=== PATIENT | female | born 1945 | race Caucasian/White ===

== ENCOUNTER 2017-07-16 20:20 | Emergency (ER) | payer OTHER, MEDICAID ==
[~2017-07-16] VITALS: Ht 160 cm; Wt 56.7 kg
[~2017-07-16 20:20] MED LIST: ALPR0.255 PO; DILT180C66 PO; FENT1PAT5 TD; OXYC5CAP18 PO; PARO25TA16 PO; TRAZ-144 PO
--- NOTE | 2017-07-16 23:47 | NUR ---
Patient eloped from facility. ER physician notified. PT WALKED OUT WITH FAMILY AND BELONGINGS AT SIDE...
== END 2017-07-16 23:51 | disposition left against medical advice (07) ==
LOC: ER 20:21
DX: M79.89 Other specified soft tissue disorders (principal); Z53.21 Procedure and treatment not carried out due to patient leaving prior to being seen by health care provider
CPT/HCPCS: A4663

== ENCOUNTER 2017-07-25 23:56 | Emergency (ER) | payer OTHER, MEDICAID ==
[~2017-07-25] VITALS: Ht 160 cm; Wt 56.2 kg
--- NOTE | 2017-07-26 00:17 | NUR ---
DR ALLEN AT BEDSIDE FOR EVAL.
[2017-07-26] MEDS ORDERED: MORPHINE SULFATE 4 MG/1 ML DISP.SYRIN IV ONE (00:30)
[2017-07-26] MEDS ORDERED: ONDANSETRON 4 MG/2 ML VIAL IV ONE (00:30)
[2017-07-26] MEDS ORDERED: ONDANSETRON 4 MG/2 ML VIAL ONE (00:43)
[2017-07-26] MEDS ORDERED: MORPHINE SULFATE 4 MG/1 ML DISP.SYRIN ONE (00:43)
[2017-07-26] MEDS ORDERED: HYDROMORPHONE 1 MG/1 ML DISP.SYRIN IV ONE (00:45)
[2017-07-26] MEDS ORDERED: HYDROMORPHONE 2 MG/1 ML DISP.SYRIN ONE (00:52)
--- NOTE | 2017-07-26 01:20 | NUR ---
PATIENT CONSENT SIGNED FOR CLOSED REDUCTION OF LEFT SHOULDER. RISK AND BENEFITS EXPLAINED BY ERMD.
[2017-07-26] MEDS ORDERED: PROPOFOL 200 MG/20 ML BOTTLE ONE (01:21)
[2017-07-26] MEDS ORDERED: FENTANYL CITRATE 100 MCG/2 ML AMPUL ONE (01:22)
--- NOTE | 2017-07-26 01:30 | NUR ---
TIME OUT DONE WITH ALL MEMBERS OF THE TEAM.
--- NOTE | 2017-07-26 01:32 | NUR ---
0132- PROCEDURE STARTED WITH IV MEDICATION INFUSION, FENTANYL AND PROPOFOL 0135- BP 118/32 HR 68 O2 100% 0140- BP 108/64 HR 66 O2 100%, SECOND PROPOFOL GIVEN 0144- BP 107/71 HR 73 O2 100, PROCEDURE COMPLETED. RESPIRATIONS EVEN AND UNLABORED. SLING APPLIED. 0146- PATIENT IS AWAKE AND ALERT, TOLERATED PROCEDURE WELL. 0200- PATIENT IS SITTING UP IN BED, GIVEN DRINK BY , TOLERATING WELL. BP 121/46 HR 69 O2 100% ON 2L NC 0215- RESPIRATIONS EVEN AND UNLABORED, NO DISTRESS NOTED. BP 125/65 HR 62 02 99% ON RA 0230- BP 132/56 HR 64 O2 99% ON RA, PATIENT IS AWAKE AND ALERT, DENIES ANY CHEST PAIN OR SHORTNESS OF BREATH, NO ACUTE DISTRESS NOTED.
[2017-07-26] MEDS ORDERED: PROPOFOL 200 MG/20 ML BOTTLE IV ONE ×2 (02:30)
[2017-07-26] MEDS ORDERED: FENTANYL CITRATE 100 MCG/2 ML AMPUL IV ONE (02:30)
--- NOTE | 2017-07-26 03:04 | NUR ---
Patient discharged to home in stable conditon. Written and verbal after care instructions given. Patient verbalizes understanding of instructions. PATIENT LEFT WITH STABLE GAIT.
[2017-07-26 03:06] VITALS: BP 121/46
== END 2017-07-26 03:06 | disposition home or self-care (01) ==
LOC: ER 23:59
DX: M24.412 Recurrent dislocation, left shoulder (principal); Z96.612 Presence of left artificial shoulder joint
CPT/HCPCS: 73030; A4663; J1170; J2270; J2405; J3010; J3490

== ENCOUNTER 2017-08-02 22:40 | Emergency (ER) | payer OTHER, MEDICAID ==
[~2017-08-02] VITALS: Ht 160 cm; Wt 59.0 kg
[2017-08-02] MEDS ORDERED: FENTANYL CITRATE 100 MCG/2 ML AMPUL IV ONE (23:45)
[2017-08-02] MEDS ORDERED: IV NORMAL SALINE 1000 ML BAG IV ONE (23:45)
[2017-08-02] MEDS ORDERED: FENTANYL CITRATE 100 MCG/2 ML AMPUL ONE (23:54)
--- NOTE | 2017-08-03 01:01 | NUR ---
Patient discharged to home in stable conditon. Written and verbal after care instructions given. Patient verbalizes understanding of instructions.
== END 2017-08-03 01:03 | disposition home or self-care (01) ==
LOC: ER 22:42
DX: M25.512 Pain in left shoulder (principal); I25.10 Atherosclerotic heart disease of native coronary artery without angina pectoris; I10 Essential (primary) hypertension; M79.7 Fibromyalgia; M81.0 Age-related osteoporosis without current pathological fracture; Z95.5 Presence of coronary angioplasty implant and graft; Z96.611 Presence of right artificial shoulder joint; Z96.653 Presence of artificial knee joint, bilateral; Z88.6 Allergy status to analgesic agent; F17.200 Nicotine dependence, unspecified, uncomplicated
CPT/HCPCS: 73030; A4663; J3010; J7030

== ENCOUNTER 2019-04-07 01:17 | Emergency (ER) | payer OTHER, MEDICAID ==
[~2019-04-07] VITALS: Ht 160 cm; Wt 59.0 kg
[~2019-04-07 01:17] MED LIST changes: -TRAZ-144 PO; +TRAZ-182 PO
[2019-04-07] MEDS ORDERED: LORAZEPAM 2 MG/1 ML VIAL IM ONE (01:30)
[2019-04-07] MEDS ORDERED: LORAZEPAM 2 MG/1 ML VIAL ONE (01:30)
--- NOTE | 2019-04-07 01:40 | NUR ---
Patient bib RA 909 for c/o panic attack at home. When assessing patient, patient was hyperventilating uncooperative when instructed to slow down breathing. But patient had episodes where she stopped hyperventilating to answer questions asked, and then would continue with hyperventilation. Patient is dependent on xanax for her panic attacks. Patient in bed at lowest position, sr upx2, call light within reach.
[2019-04-07] MEDS ORDERED: GABA-534 PO (02:37)
[2019-04-07] MEDS ORDERED: CARV6.252 PO (02:37)
[2019-04-07] MEDS ORDERED: ESCI20TA37 PO (02:37)
--- NOTE | 2019-04-07 03:55 | NUR ---
Patient discharged to home in stable conditon. Written and verbal after care instructions given. Patient verbalizes understanding of instructions. Patient wearing socks with no shoes, offered to wheel patient out to prevent slipping while ambulating.
[2019-04-07 04:09] VITALS: BP 120/71
== END 2019-04-07 03:55 | disposition home or self-care (01) ==
LOC: ER 01:23
DX: F41.0 Panic disorder [episodic paroxysmal anxiety] (principal); F41.9 Anxiety disorder, unspecified; F17.200 Nicotine dependence, unspecified, uncomplicated; Z88.5 Allergy status to narcotic agent; Z79.899 Other long term (current) drug therapy
CPT/HCPCS: 71045; 93005 ×2; 96372; 99284; J2060; A4663

== ENCOUNTER 2019-11-30 09:50 | Emergency (ER) | payer OTHER, MEDICAID ==
[~2019-11-30] VITALS: Ht 160 cm; Wt 61.2 kg
[~2019-11-30 09:50] MED LIST changes: +CARV6.252 PO; +ESCI20TA37 PO; -FENT1PAT5 TD; +GABA-534 PO; -PARO25TA16 PO; -TRAZ-182 PO
[2019-11-30] MEDS ORDERED: ONDANSETRON 4 MG/2 ML VIAL ONE (10:10)
[2019-11-30] MEDS ORDERED: PANTOPRAZOLE SODIUM 40 MG VIAL IV ONE (10:15)
[2019-11-30] MEDS ORDERED: ONDANSETRON 4 MG/2 ML VIAL IV ONE (10:15)
[2019-11-30] MEDS ORDERED: IV NORMAL SALINE 1000 ML BAG IV ONE (10:15)
[2019-11-30] MEDS ORDERED: PANTOPRAZOLE SODIUM 40 MG VIAL ONE (10:24)
[2019-11-30 10:32] LABS: BASOPHILS % (AUTO) 0.4 % (0.0-2.0); EOSINOPHILS % (AUTO) 0.2 % (0.0-7.0); HEMATOCRIT 45.4 % (31.2-41.9); LYMPHOCYTES # (AUTO) 2.5 K/uL (20.0-40.0); LYMPHOCYTES % (AUTO) 23.8 % (20.5-51.5); MEAN CORPUSCULAR HEMOGLOBIN 32.3 uug (24.7-32.8); MEAN CORPUSCULAR HGB CONC 33 g/dL (32.3-35.6); MEAN CORPUSCULAR VOLUME 97.5 fL (75.5-95.3); MONOCYTES # (AUTO) 0.4 K/uL (2.0-10.0); MONOCYTES % (AUTO) 4.2 % (0.0-11.0); NEUTROPHILS # (AUTO) 7.6 K/uL (1.8-8.9); NEUTROPHILS % (AUTO) 71.4 % (38.5-71.5); PLATELET COUNT (AUTO) 290 K/uL (179-408); RED BLOOD CELL COUNT(AUTO) 4.66 MIL/uL (3.63-4.92); WHITE BLOOD COUNT (AUTO) 10.6 K/uL (3.8-11.8)
--- NOTE | 2019-11-30 10:38 | NUR ---
PT IS IN ROOM #1B. DR ALLEN EVALUATED THE PT.
[2019-11-30 10:40] LABS: CREATININE 0.7 mg/dL (0.6-1.3); POTASSIUM 3.5 mmol/L (3.5-5.1)
[2019-11-30 10:45] LABS: BILIRUBIN,DIRECT 0.1 mg/dL (0.0-0.2); BILIRUBIN,TOTAL 0.7 mg/dL (0.2-1.0); TOTAL PROTEIN, SERUM 7.7 g/dL (6.4-8.2)
[2019-11-30 11:59] LABS: *BILIRUBIN,URIN NEGATIVE (NEGATIVE); *BLOOD, URINE NEGATIVE (NEGATIVE); *CLARITY,URINE CLEAR (CLEAR); *COLOR,URINE YELLOW (YELLOW); UGLUCOSE NEGATIVE (NEGATIVE)
[2019-11-30 12:00] LABS: *KETONES,URINE 4+ (NEGATIVE); *UROBILINOGEN,URINE 0.2 E.U./dl (NORMAL); LEUKOCYTE ESTERASE ,URINE NEGATIVE (NEGATIVE); NITRITE, URINE NEGATIVE (NEGATIVE)
[2019-11-30 12:04] LABS: BACTERIA,URINE 2+ /HPF (NONE SEEN); RBC,URINE 0-3 /HPF (0-3); SQUAMOUS EPITHELIAL CELL,UR MODERATE /HPF (NONE SEEN); WBC,URINE 0-3 /HPF (0-3)
[2019-11-30] MEDS ORDERED: LORAZEPAM 2 MG/1 ML VIAL ONE (12:10)
[2019-11-30] MEDS ORDERED: LORAZEPAM 2 MG/1 ML VIAL IV ONE (12:15)
[2019-11-30] MEDS ORDERED: CLOPIDOGREL 75 MG TABLET PO ONE (12:30)
[2019-11-30] MEDS ORDERED: CLOPIDOGREL 75 MG TABLET ONE (12:33)
--- NOTE | 2019-11-30 13:24 | NUR ---
dr Barriga talked to dr Barnett from [facility]. pt was transfered to [facility] at [facility] ambulance . report was given to coral Sutherland and to ambulance rn.
== END 2019-11-30 13:41 | disposition short-term general hospital (02) ==
LOC: ER 09:50
DX: R07.89 Other chest pain (principal); K52.9 Noninfective gastroenteritis and colitis, unspecified; F41.9 Anxiety disorder, unspecified; I25.10 Atherosclerotic heart disease of native coronary artery without angina pectoris; F17.200 Nicotine dependence, unspecified, uncomplicated; Z88.5 Allergy status to narcotic agent; Z79.899 Other long term (current) drug therapy
CPT/HCPCS: 36415; 71045; 74176; 80048; 80076; 81000; 81001; 83690; 84484; 85025; 85730; 93005; 96361; 96374; 96375; 99285; C9113; J2060; J2405; 70030-TC; A4663; J7030

== ENCOUNTER 2020-06-07 05:22 | Emergency (ER) | payer OTHER, MEDICAID ==
[~2020-06-07] VITALS: Ht 160 cm; Wt 69.4 kg
--- NOTE | 2020-06-07 05:27 | NUR ---
Dr. Zapien at bedside for MSE
[2020-06-07] MEDS ORDERED: MUPIROCIN 2% OINT 22 GM TUBE TP ONE (05:30)
[2020-06-07] MEDS ORDERED: SULFAMETH/TRIMETH 800/160 MG TABLET PO ONE (05:30)
[2020-06-07] MEDS ORDERED: CEPH-570 PO (05:37)
[2020-06-07] MEDS ORDERED: MUPIROCIN 2% OINT 22 GM TUBE ONE (05:39)
[2020-06-07] MEDS ORDERED: SULFAMETH/TRIMETH 800/160 MG TABLET ONE (05:39)
--- NOTE | 2020-06-07 06:00 | NUR ---
Patient discharged to home in stable condition. Written and verbal after care instructions given. Patient verbalizes understanding of instructions. Stressed follow up or return to ER for worsening s/s. aa/ox4 able to speak in complete sentences respirations even and unlabored no s/s of distress all belongings with pt ambulatory with steady gait pt's friend will drive pt home
[2020-06-07 06:35] VITALS: BP 124/77
[2020-06-07] MEDS ORDERED: SULF1TAB48 PO (11:25)
[2020-06-07] MEDS ORDERED: MUPI22OI2 TP (11:25)
== END 2020-06-07 06:00 | disposition home or self-care (01) ==
LOC: ER 05:27
DX: L08.9 Local infection of the skin and subcutaneous tissue, unspecified (principal); S91.302A Unspecified open wound, left foot, initial encounter; X58.XXXA Exposure to other specified factors, initial encounter; Y92.89 Other specified places as the place of occurrence of the external cause; Z96.653 Presence of artificial knee joint, bilateral; Z96.611 Presence of right artificial shoulder joint; I25.10 Atherosclerotic heart disease of native coronary artery without angina pectoris; Z95.5 Presence of coronary angioplasty implant and graft; M79.7 Fibromyalgia; G89.29 Other chronic pain; F41.9 Anxiety disorder, unspecified; Z79.899 Other long term (current) drug therapy
CPT/HCPCS: A4663

== ENCOUNTER 2020-06-07 10:42 | Emergency (ER) | payer OTHER ==
[~2020-06-07] VITALS: Ht 160 cm; Wt 68.0 kg
[~2020-06-07 10:42] MED LIST changes: +CEPH-570 PO
[2020-06-07] MEDS ORDERED: IV NORMAL SALINE 1000 ML BAG IV ONE (11:00)
[2020-06-07] MEDS ORDERED: LORAZEPAM 2 MG/1 ML VIAL IV ONE (11:00)
[2020-06-07] MEDS ORDERED: LORAZEPAM 2 MG/1 ML VIAL ONE (11:15)
[2020-06-07 11:23] LABS: BASOPHILS % (AUTO) 0.5 % (0.0-2.0); EOSINOPHILS % (AUTO) 0.2 % (0.0-7.0); HEMATOCRIT 41.2 % (31.2-41.9); HEMOGLOBIN 13.8 g/dL (10.9-14.3); LYMPHOCYTES # (AUTO) 1.9 K/uL (20.0-40.0); LYMPHOCYTES % (AUTO) 18.2 % (20.5-51.5); MEAN CORPUSCULAR HEMOGLOBIN 31.1 uug (24.7-32.8); MEAN CORPUSCULAR HGB CONC 34 g/dL (32.3-35.6); MEAN CORPUSCULAR VOLUME 92.7 fL (75.5-95.3); MONOCYTES # (AUTO) 0.6 K/uL (2.0-10.0); MONOCYTES % (AUTO) 5.6 % (0.0-11.0); NEUTROPHILS # (AUTO) 7.7 K/uL (1.8-8.9); NEUTROPHILS % (AUTO) 75.5 % (38.5-71.5); PLATELET COUNT (AUTO) 322 K/uL (179-408); RED BLOOD CELL COUNT(AUTO) 4.45 MIL/uL (3.63-4.92); WHITE BLOOD COUNT (AUTO) 10.2 K/uL (3.8-11.8)
[2020-06-07] MEDS ORDERED: MUPI22OI2 TP (11:25)
[2020-06-07] MEDS ORDERED: SULF1TAB48 PO (11:25)
[2020-06-07 11:27] LABS: CREATININE 0.7 mg/dL (0.6-1.3); POTASSIUM 3.4 mmol/L (3.5-5.1)
[2020-06-07] MEDS ORDERED: ONDANSETRON ODT 4 MG TAB.RAPDIS ONE (11:32)
[2020-06-07 11:33] LABS: BILIRUBIN,DIRECT 0.2 mg/dL (0.0-0.2); BILIRUBIN,TOTAL 0.6 mg/dL (0.2-1.0); TOTAL PROTEIN, SERUM 7.7 g/dL (6.4-8.2)
--- NOTE | 2020-06-07 11:38 | NUR ---
PATIENT HERE FOR C/O NAUSEA AND VOMITING
[2020-06-07] MEDS ORDERED: LORAZEPAM 2 MG/1 ML VIAL IM ONE (11:45)
[2020-06-07] MEDS ORDERED: ONDANSETRON ODT 4 MG TAB.RAPDIS SL ONE (11:45)
--- NOTE | 2020-06-07 11:51 | NUR ---
PATIENT STATES NAUSEA HAS DIMINISHED.
--- NOTE | 2020-06-07 12:18 | NUR ---
PATIENT IS ABLE TO DRINK 8 OZ OF WATER WITH NO SYMPTOMS.
--- NOTE | 2020-06-07 12:26 | NUR ---
DC, RX AND FOLLOW UP INSTRUCTIONS GIVEN AND EXPLAINED TO PATIENT WHO STATES SHE UNDERSTANDS ALL INSTRUCITONS.
--- NOTE | 2020-06-07 12:29 | NUR ---
UNABLE TO PLACE IV BECAISE PATIENT KEEP PULLING HER ARM WHEN NEEDLE TOUCHES HER SKIN. DR CASH NOTIFIED. ATIVAN GIVEN IM AND ZOFRAN ODT. PATIENT WAS ABLE TO DRINK >8 OZ OF WATER WITH NO ISSUES. PATIENT HAD VERY MINIMAL COUGHING AND NO VOMITING DURING STAY IN ER TODAY.
--- NOTE | 2020-06-07 12:30 | NUR ---
DC, RX AND FOLLOW UP INSTRUCTIONS GIVEN AND EXPLAINED TO PATIENT WHO STATES SHE UNDERSTANDS ALL INSTRUCITONS. INSTRUCTED NOT TO DRIVE AND OTHER BENZO PRECAUTIONS.
== END 2020-06-07 12:31 | disposition home or self-care (01) ==
LOC: ER 10:42
DX: F41.1 Generalized anxiety disorder (principal); R11.2 Nausea with vomiting, unspecified; M79.7 Fibromyalgia; I25.10 Atherosclerotic heart disease of native coronary artery without angina pectoris; Z95.5 Presence of coronary angioplasty implant and graft; Z96.653 Presence of artificial knee joint, bilateral; Z96.611 Presence of right artificial shoulder joint; G89.29 Other chronic pain; I51.7 Cardiomegaly
CPT/HCPCS: 36415; 80048; 80076; 84484; 85025; 93005; 96372; 99284; J2060; 70030-TC; A4663; J7030; Q0162

== ENCOUNTER 2020-06-15 01:31 | Emergency (ER) | payer OTHER ==
[~2020-06-15] VITALS: Ht 165.1 cm; Wt 65.8 kg
[~2020-06-15 01:31] MED LIST changes: -CEPH-570 PO; +MUPI22OI2 TP; -OXYC5CAP18 PO; +SULF1TAB48 PO
--- NOTE | 2020-06-15 01:38 | NUR ---
NAZARIO LAO at bedside for MSE
[2020-06-15] MEDS: SULFAMETH/TRIMETH 800/160 MG TABLET PO ONE (01:50)
[2020-06-15] MEDS ORDERED: ONDANSETRON ODT 4 MG TAB.RAPDIS ONE (01:50)
[2020-06-15] MEDS ORDERED: NEOMY/BACITRA/POLYMYXIN B OINT UD PACKET TP ONE (01:50)
[2020-06-15] MEDS ORDERED: OXYCODONE/APAP 5-325 MG TABLET ONE (01:51)
[2020-06-15] MEDS ORDERED: SULFAMETH/TRIMETH 800/160 MG TABLET ONE (01:51)
[2020-06-15] MEDS ORDERED: CEphaleXIN 500 MG CAPSULE ONE (01:51)
[2020-06-15] MEDS: NEOMY/BACITRA/POLYMYXIN B OINT UD PACKET TP ONE (01:51)
[2020-06-15] MEDS: OXYCODONE/APAP 5-325 MG TABLET PO ONE (01:51)
[2020-06-15] MEDS: CEphaleXIN 500 MG CAPSULE PO ONE (01:51)
[2020-06-15] MEDS: ONDANSETRON ODT 4 MG TAB.RAPDIS SL ONE (01:51)
--- NOTE | 2020-06-15 02:02 | NUR ---
Patient left foot ulcers cleansed with Normal saline, triple antibiotic applied, non adherent gauze, kerlix, tube guaze. pain medication administered per MD orders
--- NOTE | 2020-06-15 02:27 | NUR ---
Patient discharged to home in stable condition. Written and verbal after care instructions given. Patient verbalizes understanding of instructions. Stressed follow up or return to ER for worsening s/s. Pt picked up by friend, Nael, driving her home. pt appears in no distress.
[2020-06-15 02:28] VITALS: BP 133/62
== END 2020-06-15 02:28 | disposition home or self-care (01) ==
LOC: ER 01:35
DX: L03.116 Cellulitis of left lower limb (principal); M79.7 Fibromyalgia; G89.29 Other chronic pain; Z96.653 Presence of artificial knee joint, bilateral; Z96.611 Presence of right artificial shoulder joint; I25.10 Atherosclerotic heart disease of native coronary artery without angina pectoris; Z95.5 Presence of coronary angioplasty implant and graft
CPT/HCPCS: A4663; Q0162

== ENCOUNTER 2020-06-20 13:51 | Emergency (ER) | payer OTHER ==
[~2020-06-20] VITALS: Ht 165.1 cm; Wt 65.8 kg
[2020-06-20] MEDS ORDERED: ONDANSETRON 4 MG/2 ML VIAL ONE (14:13)
[2020-06-20] MEDS ORDERED: ONDANSETRON 4 MG/2 ML VIAL IM ONE (14:15)
[2020-06-20 14:40] VITALS: BP 140/63
== END 2020-06-20 14:41 | disposition home or self-care (01) ==
LOC: ER 13:58
DX: L03.116 Cellulitis of left lower limb (principal); R11.2 Nausea with vomiting, unspecified; T36.1X5A Adverse effect of cephalosporins and other beta-lactam antibiotics, initial encounter; Y92.89 Other specified places as the place of occurrence of the external cause; I25.10 Atherosclerotic heart disease of native coronary artery without angina pectoris; Z95.5 Presence of coronary angioplasty implant and graft; M79.7 Fibromyalgia; G89.29 Other chronic pain; Z96.653 Presence of artificial knee joint, bilateral; Z96.611 Presence of right artificial shoulder joint; Z79.899 Other long term (current) drug therapy
CPT/HCPCS: A4663; J2405

== ENCOUNTER 2020-09-30 14:04 | Emergency (ER) | payer OTHER, MEDICAID ==
[~2020-09-30] VITALS: Ht 172.7 cm; Wt 70.8 kg
[2020-09-30] MEDS: IV NORMAL SALINE 1000 ML BAG IV ONE ×2 (14:15→14:17)
[2020-09-30] MEDS ORDERED: NALOXONE HCL 0.4 MG/ML AMPUL IV ONE (14:15)
[2020-09-30] MEDS ORDERED: BUSP15TA3 PO (14:17)
[2020-09-30] MEDS ORDERED: IBUP-1953 PO (14:17)
[2020-09-30] MEDS ORDERED: NALOXONE HCL 0.4 MG/ML AMPUL ONE (14:20)
[2020-09-30 14:32] LABS: BASOPHILS # (AUTO) 0.1 K/uL (0.0-8.0); BASOPHILS % (AUTO) 0.6 % (0.0-2.0); EOSINOPHILS # (AUTO) 0.1 K/uL (0.0-0.7); EOSINOPHILS % (AUTO) 0.4 % (0.0-7.0); HEMATOCRIT 29.4 % (31.2-41.9); LYMPHOCYTES # (AUTO) 2.1 K/uL (20.0-40.0); LYMPHOCYTES % (AUTO) 15.4 % (20.5-51.5); MEAN CORPUSCULAR HEMOGLOBIN 32.5 uug (24.7-32.8); MEAN CORPUSCULAR HGB CONC 34 g/dL (32.3-35.6); MEAN CORPUSCULAR VOLUME 95.4 fL (75.5-95.3); MONOCYTES # (AUTO) 0.5 K/uL (2.0-10.0); MONOCYTES % (AUTO) 3.9 % (0.0-11.0); NEUTROPHILS % (AUTO) 79.7 % (38.5-71.5); PLATELET COUNT (AUTO) 289 K/uL (179-408); RED BLOOD CELL COUNT(AUTO) 3.08 MIL/uL (3.63-4.92); WHITE BLOOD COUNT (AUTO) 13.9 K/uL (3.8-11.8)
--- NOTE | 2020-09-30 14:32 | NUR ---
pt back from ct scan. Andrea Thorpe at bedside. pt able to move toesand fingers when told so. i asked the pt to blink, if she hears me and she blinked. pt remains non-verbal with weakness on all extremeties.
[2020-09-30 14:46] LABS: CARBON DIOXIDE 23 mmol/L (21-32); CHLORIDE 105 mmol/L (98-107); CREATININE 0.7 mg/dL (0.6-1.3); GLUCOSE 171 mg/dL (74-106); POTASSIUM 3.6 mmol/L (3.5-5.1); UREA NITROGEN, BLOOD 20 mg/dL (7-18)
[2020-09-30 14:52] LABS: ETHANOL < 3 MG/DL (0-0)
[2020-09-30 14:55] LABS: THYROID STIMULATING HORMONE 4.355 mIU/mL (0.358-3.740)
[2020-09-30 14:56] LABS: *BILIRUBIN,URIN NEGATIVE (NEGATIVE); *BLOOD, URINE NEGATIVE (NEGATIVE); *CLARITY,URINE SLIGHTLY CLOUDY (CLEAR); *COLOR,URINE YELLOW (YELLOW); *KETONES,URINE NEGATIVE (NEGATIVE); *UROBILINOGEN,URINE 0.2 E.U./dl (NORMAL); LEUKOCYTE ESTERASE ,URINE NEGATIVE (NEGATIVE); NITRITE, URINE NEGATIVE (NEGATIVE); UGLUCOSE NEGATIVE (NEGATIVE)
[2020-09-30] MEDS: IV NORMAL SALINE 250 ML BAG IV ONE ×2 (15:06→15:32)
[2020-09-30 15:13] LABS: *AMPHETAMINE, URINE NEGATIVE (NEGATIVE); *CANNABINOID, URINE NEGATIVE (NEGATIVE); *COCCAINE, URINE NEGATIVE (NEGATIVE); *OPIATE, URINE NEGATIVE (NEGATIVE); *PHENCYCLIDINE SCREEN,URINE NEGATIVE (NEGATIVE)
--- NOTE | 2020-09-30 15:14 | NUR ---
er md at bedside talking to pt. pt able to answer in 1-2 words.
--- NOTE | 2020-09-30 15:19 | NUR ---
pt awake now, able to talk in small sentences.
[2020-09-30 15:22] LABS: ALANINE AMINOTRANSFERASE 16 U/L (14-59); ALKALINE PHOSPHATASE 77 U/L (50-136); ASPARTATE AMINOTRANSFERASE 16 U/L (15-37); BILIRUBIN,DIRECT 0.1 mg/dL (0.0-0.2); BILIRUBIN,TOTAL 0.5 mg/dL (0.2-1.0); TOTAL PROTEIN, SERUM 6.3 g/dL (6.4-8.2)
[2020-09-30] MEDS ORDERED: PANTOPRAZOLE SODIUM 40 MG VIAL ONE (15:39)
[2020-09-30] MEDS ORDERED: ONDANSETRON 4 MG/2 ML VIAL ONE (15:39)
[2020-09-30] MEDS ORDERED: ONDANSETRON 4 MG/2 ML VIAL IV ONE (15:45)
[2020-09-30] MEDS ORDERED: IV NS 1000 ML 1,000 ML IV ONE (15:45)
[2020-09-30] MEDS ORDERED: PANTOPRAZOLE SODIUM 40 MG VIAL IV ONE (15:45)
[2020-09-30] MEDS ORDERED: ACETYLCYSTEINE IV 0 MG in IV D5W 1000ML 1,000 ML IV ONE (17:30)
--- NOTE | 2020-09-30 18:19 | NUR ---
NAZARIO LAO spoke to Dr Hansen from [facility].
--- NOTE | 2020-09-30 18:21 | NUR ---
pt awake, moving all extremeties, trying to come out of bed and go to bathroom, bed turner provided.
[2020-09-30] MEDS ORDERED: DEXTROSE 5% IV ONE ×2 (18:23→19:30)
[2020-09-30] MEDS ORDERED: ACETYLCYSTEINE IV ONE ×2 (18:23→19:30)
--- NOTE | 2020-09-30 18:23 | NUR ---
er talked to at [facility], pt will be transfered, [phone].
--- NOTE | 2020-09-30 19:30 | NUR ---
Ron agustin in ED - 10/04/20 at 1351 by CHRISTINA mucomyst Iv started at 1930, left hand.
--- NOTE | 2020-09-30 20:00 | NUR ---
mucomyst IV completed at 1999.
--- NOTE | 2020-09-30 20:04 | NUR ---
[facility] Patient will be going to [facility] room 5110A. Accepting MD is Dr Galvez. Call for report is . ETA of [facility] ambulance is 2114.
--- NOTE | 2020-09-30 23:00 | NUR ---
Ron agustin in ED - 10/04/20 at 1352 by CHRISTINA mucomyst IV completed at 2300
--- NOTE | 2020-09-30 23:01 | NUR ---
Ron agustin in [facility] - 09/30/20 at 2301 by MATHEUS Report given to CB Champion
--- NOTE | 2020-09-30 23:07 | NUR ---
Report given to CB Champion at [facility] floor bed 5110A at [facility]. Report given to CB Bravo of [id number]. Patient vital signs stable and ready for transport.
[2020-10-01 15:54] LABS: BACTERIA,URINE NONE SEEN /HPF (NONE SEEN); RBC,URINE 0-3 /HPF (0-3); SQUAMOUS EPITHELIAL CELL,UR FEW /HPF (NONE SEEN); WBC,URINE 0-3 /HPF (0-3)
== END 2020-09-30 23:08 | disposition short-term general hospital (02) ==
LOC: ER 14:04
DX: T42.4X4A Poisoning by benzodiazepines, undetermined, initial encounter (principal); T39.1X4A Poisoning by 4-Aminophenol derivatives, undetermined, initial encounter; R11.0 Nausea; G92 Toxic encephalopathy; Y92.039 Unspecified place in apartment as the place of occurrence of the external cause; R00.1 Bradycardia, unspecified; K43.9 Ventral hernia without obstruction or gangrene; Z98.49 Cataract extraction status, unspecified eye; Z96.1 Presence of intraocular lens; D72.829 Elevated white blood cell count, unspecified; D64.9 Anemia, unspecified; I25.10 Atherosclerotic heart disease of native coronary artery without angina pectoris; M79.7 Fibromyalgia; G89.29 Other chronic pain; Z96.653 Presence of artificial knee joint, bilateral; Z96.698 Presence of other orthopedic joint implants; Z96.611 Presence of right artificial shoulder joint; Z95.5 Presence of coronary angioplasty implant and graft; Z79.899 Other long term (current) drug therapy; F17.200 Nicotine dependence, unspecified, uncomplicated; Z20.828 Contact with and (suspected) exposure to other viral communicable diseases
CPT/HCPCS: 36415; 70450; 71045; 72125; 74176; 80048; 80076; 80299 ×2; 80307; 80320; 81001; 82140; 82550; 83605; 83880; 84443; 84484; 85025; 85730; 87086; 87426; 93005; 96361; 96365; 96375; 99285; C9113; J0132 ×2; J2310; J2405; J7060 ×2; 70030-TC; A4663; C1758; G0480; J7050

== ENCOUNTER 2021-07-21 21:06 | Emergency (ER) | payer OTHER ==
[~2021-07-21] VITALS: Ht 165.1 cm; Wt 61.2 kg
[~2021-07-21 21:06] MED LIST changes: +BUSP15TA3 PO; -ESCI20TA37 PO; +ESCI20TA44 PO; +IBUP-1953 PO; -MUPI22OI2 TP; -SULF1TAB48 PO
[2021-07-21] MEDS ORDERED: LORA-259 PO (22:44)
[2021-07-21] MEDS ORDERED: LORAZEPAM 0.5 MG TABLET PO ONE (22:45)
[2021-07-21] MEDS ORDERED: LORAZEPAM 1 MG TABLET ONE (22:53)
--- NOTE | 2021-07-21 22:58 | NUR ---
Patient discharged to home in stable condition. A/O x4, no SOB or labored breathing. Written and verbal after care instructions given. Patient verbalizes understanding of instructions. Stressed follow up or return to ER for worsening s/s. STeaDy gait. Picked up by family.
[2021-07-21 23:00] VITALS: BP 132/78
== END 2021-07-21 23:00 | disposition home or self-care (01) ==
LOC: ER 21:07
DX: F41.9 Anxiety disorder, unspecified (principal); G89.29 Other chronic pain; M79.7 Fibromyalgia; I25.10 Atherosclerotic heart disease of native coronary artery without angina pectoris; Z95.5 Presence of coronary angioplasty implant and graft; Z96.653 Presence of artificial knee joint, bilateral; Z96.611 Presence of right artificial shoulder joint
CPT/HCPCS: A4663

== ENCOUNTER 2021-07-22 15:42 | Emergency (ER) | payer OTHER ==
[~2021-07-22] VITALS: Ht 165.1 cm; Wt 63.5 kg
[~2021-07-22 15:42] MED LIST changes: +LORA-259 PO
[2021-07-22] MEDS ORDERED: LORAZEPAM 0.5 MG TABLET PO ONE ×2 (16:15→18:15)
[2021-07-22] MEDS ORDERED: LORAZEPAM 0.5 MG TABLET ONE ×2 (16:22→18:20)
[2021-07-22] MEDS: IV NORMAL SALINE 1000 ML BAG IV ONE ×2 (16:49→17:30)
[2021-07-22 16:50] LABS: MEAN CORPUSCULAR HEMOGLOBIN 27.8 uug (24.7-32.8); MEAN CORPUSCULAR VOLUME 85.7 fL (75.5-95.3); PLATELET COUNT (AUTO) 377 K/uL (179-408)
[2021-07-22] MEDS: ONDANSETRON 4 MG/2 ML VIAL IV ONE ×2 (16:50→17:30)
[2021-07-22 16:55] LABS: CREATININE 0.6 mg/dL (0.6-1.3)
--- NOTE | 2021-07-22 16:57 | NUR ---
1615: Reinforcing Steel Machine Operator assumes care. 1st contact with patient: She is AOx4. She is standing by ER bed 4 door, loudly and repeatedly saying, "I want my Zanax." 1616: Po Ativan given as ordered. 1620: Patient was initially refusing EKG and blood draw. notified. 1634: 2 extra warm blankets provided. 1636: Blood draw in progress by lab inorganic chemical technician. 1654: MD wanted the EKG repeated. Patient refused and requested to wait for one hour before repeating the EKG test. notified. Patient is seen resting comfortably on gurney with eyes closed. Light dimmed.
[2021-07-22 17:01] LABS: BILIRUBIN,DIRECT 0.2 mg/dL (0.0-0.2); BILIRUBIN,TOTAL 0.6 mg/dL (0.2-1.0); TOTAL PROTEIN, SERUM 7.7 g/dL (6.4-8.2)
[2021-07-22] MEDS ORDERED: ONDANSETRON 4 MG/2 ML VIAL ONE (17:18)
--- NOTE | 2021-07-22 17:37 | NUR ---
Patient wants more anti-anxiety medicines, MD notified. Patient keeps walking in the ER hallway despite frequent reminders by all ER staff to stay in her room for her safety and to protect other patient's confidential medical information.
--- NOTE | 2021-07-22 17:46 | NUR ---
Patient signed transfer consent. ([id number])
--- NOTE | 2021-07-22 17:54 | NUR ---
Patient wants to leave. MD notified. Patient is now talking to her spouse? and daughter via hospital wireless telephone.
--- NOTE | 2021-07-22 19:07 | NUR ---
Pending [facility] transfer information, hands off report given to CB Dang.
--- NOTE | 2021-07-22 19:10 | NUR ---
Received report from CB Aguillon. Pt noted to be resting in bed comfortably, eyes closed, VSS. Breathing even and unlabored.
--- NOTE | 2021-07-22 20:37 | NUR ---
[facility] with [facility], patient is going to [facility], Room#4045, Number to report to , Accepting MD is Dr. Dong, Ambulance is [facility] with ETA 2130.
--- NOTE | 2021-07-22 20:55 | NUR ---
GAVE REPORT TO NEISHA, NURSE IN [facility].
--- NOTE | 2021-07-22 21:28 | NUR ---
[facility] AT BEDSIDE, UNIT 116, TO TRANSFER PT TO [place]. TRINY RECEIVING NURSE MADE AWARE.
--- NOTE | 2021-07-22 21:35 | NUR ---
Patient Tranfers to outside Facility Physician: DR. POTTER Location: [facility], Room#3429
== END 2021-07-22 21:35 | disposition short-term general hospital (02) ==
LOC: ER 15:43
DX: F41.9 Anxiety disorder, unspecified (principal); R11.2 Nausea with vomiting, unspecified; D72.829 Elevated white blood cell count, unspecified; M79.7 Fibromyalgia; Z20.822 Contact with and (suspected) exposure to COVID-19; Z96.611 Presence of right artificial shoulder joint; Z96.653 Presence of artificial knee joint, bilateral; I25.10 Atherosclerotic heart disease of native coronary artery without angina pectoris; Z95.5 Presence of coronary angioplasty implant and graft; Z88.5 Allergy status to narcotic agent; G89.29 Other chronic pain
CPT/HCPCS: 36415; 74176; 80048; 80076; 83605; 83690; 84484; 85025; 87426; 93005; 96361; 96374; 99285; J2405; 70030-TC; A4663

== ENCOUNTER 2021-07-25 04:02 | Emergency (ER) | payer OTHER ==
[~2021-07-25] VITALS: Ht 165.1 cm; Wt 63.5 kg
[2021-07-25] MEDS ORDERED: PROCHLORPERAZINE EDISYLATE 10 MG/2 ML VIAL IV ONE (04:15)
[2021-07-25] MEDS ORDERED: PROCHLORPERAZINE EDISYLATE 10 MG/2 ML VIAL IM ONE (04:15)
[2021-07-25] MEDS ORDERED: IV NORMAL SALINE 1000 ML BAG IV ONE (04:15)
[2021-07-25 04:25] LABS: HEMATOCRIT 34.5 % (31.2-41.9); MEAN CORPUSCULAR HEMOGLOBIN 27.8 uug (24.7-32.8); MEAN CORPUSCULAR VOLUME 87.2 fL (75.5-95.3); PLATELET COUNT (AUTO) 285 K/uL (179-408)
[2021-07-25 04:30] LABS: CARBON DIOXIDE 26 mmol/L (21-32); CHLORIDE 103 mmol/L (98-107); CREATININE 0.5 mg/dL (0.6-1.3); GLUCOSE 94 mg/dL (74-106); POTASSIUM 4.2 mmol/L (3.5-5.1); UREA NITROGEN, BLOOD 13 mg/dL (7-18)
[2021-07-25 04:35] LABS: ALANINE AMINOTRANSFERASE 16 U/L (14-59); ALKALINE PHOSPHATASE 85 U/L (50-136); ASPARTATE AMINOTRANSFERASE 16 U/L (15-37); BILIRUBIN,DIRECT 0.1 mg/dL (0.0-0.2); BILIRUBIN,TOTAL 0.1 mg/dL (0.2-1.0); TOTAL PROTEIN, SERUM 6.4 g/dL (6.4-8.2)
[2021-07-25] MEDS ORDERED: PROCHLORPERAZINE EDISYLATE 10 MG/2 ML VIAL ONE (04:49)
--- NOTE | 2021-07-25 04:51 | NUR ---
Pt bib ra89 from home for n/v/d x 1 week. Pt was discharged today from [facility]. Pt. aox3.
[2021-07-25] MEDS ORDERED: LORAZEPAM 2 MG/1 ML VIAL IV ONE (05:00)
--- NOTE | 2021-07-25 05:07 | NUR ---
Pt taken to CT
[2021-07-25] MEDS ORDERED: LORAZEPAM 2 MG/1 ML VIAL ONE (05:09)
--- NOTE | 2021-07-25 05:43 | NUR ---
Assisted pt. to restroom because pt. had diarrhea twice. Replaced pts. briefs, repositioned in bed. Vss. Will continue to monitor.
[2021-07-25] MEDS ORDERED: MAGNESIUM CITRATE 296 ML BOTTLE PO ONE (06:00)
[2021-07-25] MEDS ORDERED: BISA-79 PO (06:08)
[2021-07-25] MEDS ORDERED: MINE1OIL PO (06:08)
[2021-07-25] MEDS ORDERED: BISA10SU61 RC (06:08)
[2021-07-25] MEDS ORDERED: DOCU-141 PO (06:08)
[2021-07-25 06:27] LABS: *BILIRUBIN,URIN NEGATIVE (NEGATIVE); *BLOOD, URINE NEGATIVE (NEGATIVE); *CLARITY,URINE CLEAR (CLEAR); *COLOR,URINE YELLOW (YELLOW); *KETONES,URINE NEGATIVE (NEGATIVE); *UROBILINOGEN,URINE 0.2 E.U./dl (NORMAL); LEUKOCYTE ESTERASE ,URINE NEGATIVE (NEGATIVE); NITRITE, URINE NEGATIVE (NEGATIVE); PH,URINE 6.5 (5.0-8.0); UGLUCOSE NEGATIVE (NEGATIVE)
--- NOTE | 2021-07-25 06:32 | NUR ---
Note vamsi in EDM - 07/25/21 at 0659 by SOFIA Patient discharged to home in stable condition. Written and verbal after care instructions given. Patient verbalizes understanding of instructions. Stressed follow up or return to ER for worsening s/s. Pt walks with steady gait. All belongings taken.
--- NOTE | 2021-07-25 06:40 | NUR ---
CALLED [facility] IN [facility]ARDS TO CT IMAGES NOT BEING READ FOR OVER AN HOUR. ALSO I LEFT A NOTE ON [employer] FOR THEM TO CALL Radha JOINER WITH THE RESULTS.
[2021-07-25] MEDS ORDERED: ALPRAZOLAM 0.25 MG TABLET PO ONE (07:30)
--- NOTE | 2021-07-25 07:31 | NUR ---
DR BRISENO TALKED TO RADIOLOGIST TO DISCUSS PT's CT RESULT. [facility] WAS CALLED ACCORDING TO DR BRISENO ORDERS.
[2021-07-25] MEDS ORDERED: ALPRAZOLAM 0.25 MG TABLET ONE (07:32)
[2021-07-25] MEDS ORDERED: CIPR-262 PO (07:54)
[2021-07-25] MEDS ORDERED: ONDANSETRON 4 MG/2 ML VIAL IV ONE (08:00)
[2021-07-25] MEDS ORDERED: CIPROFLOXACIN HCL 250 MG TABLET PO ONE (08:00)
[2021-07-25] MEDS ORDERED: CIPROFLOXACIN HCL 250 MG TABLET ONE (08:04)
[2021-07-25] MEDS ORDERED: ONDANSETRON 4 MG/2 ML VIAL ONE (08:07)
--- NOTE | 2021-07-25 08:32 | NUR ---
pt was d/c'D to home after dr payne evaluation. d/c instructions given to the pt and her doughter by dr payne.
[2021-07-25 08:33] VITALS: BP 138/66
== END 2021-07-25 08:34 | disposition home or self-care (01) ==
LOC: ER 04:02
DX: K59.00 Constipation, unspecified (principal); R11.0 Nausea; K52.9 Noninfective gastroenteritis and colitis, unspecified; F41.9 Anxiety disorder, unspecified; I25.10 Atherosclerotic heart disease of native coronary artery without angina pectoris; Z96.653 Presence of artificial knee joint, bilateral; Z96.611 Presence of right artificial shoulder joint; Z95.5 Presence of coronary angioplasty implant and graft; M79.7 Fibromyalgia; G89.29 Other chronic pain; Z88.5 Allergy status to narcotic agent; F17.200 Nicotine dependence, unspecified, uncomplicated; Z79.899 Other long term (current) drug therapy; D72.829 Elevated white blood cell count, unspecified; Z98.82 Breast implant status
CPT/HCPCS: 36415; 74176; 80048; 80076; 81003; 83605; 85025; 96361; 96374; 96375; 99285; J0780; J2060; J2405; A4663; J7030

== ENCOUNTER 2021-10-25 01:54 | Emergency (ER) | payer OTHER ==
[~2021-10-25] VITALS: Ht 165.1 cm; Wt 61.2 kg
[~2021-10-25 01:54] MED LIST changes: +BISA-79 PO; +BISA10SU61 RC; +CIPR-262 PO; +DOCU-141 PO; +MINE1OIL PO
[2021-10-25] MEDS ORDERED: NITROGLYCERIN OINT 1 GM PACKET TP ONE ×2 (02:15→02:36)
[2021-10-25] MEDS ORDERED: HYDROMORPHONE 1 MG/1 ML DISP.SYRIN IV ONE ×2 (02:30→03:30)
[2021-10-25] MEDS ORDERED: ONDANSETRON 4 MG/2 ML VIAL IV ONE (02:30)
[2021-10-25 02:31] VITALS: BP 119/74
[2021-10-25 02:35] LABS: CARBON DIOXIDE 28 mmol/L (21-32); CHLORIDE 104 mmol/L (98-107); CREATININE 0.8 mg/dL (0.6-1.3); GLUCOSE 125 mg/dL (74-106); POTASSIUM 4.4 mmol/L (3.5-5.1); UREA NITROGEN, BLOOD 16 mg/dL (7-18)
[2021-10-25] MEDS ORDERED: HYDROMORPHONE 1 MG/1 ML DISP.SYRIN ONE ×2 (02:36→03:46)
[2021-10-25] MEDS ORDERED: ONDANSETRON 4 MG/2 ML VIAL ONE (02:36)
[2021-10-25 02:37] LABS: HEMATOCRIT 28.8 % (31.2-41.9); MEAN CORPUSCULAR HEMOGLOBIN 27.4 uug (24.7-32.8); MEAN CORPUSCULAR VOLUME 85.5 fL (75.5-95.3); PLATELET COUNT (AUTO) 281 K/uL (179-408)
[2021-10-25 02:47] LABS: ALANINE AMINOTRANSFERASE 32 U/L (14-59); ALKALINE PHOSPHATASE 96 U/L (50-136); ASPARTATE AMINOTRANSFERASE 17 U/L (15-37); BILIRUBIN,TOTAL 0.2 mg/dL (0.2-1.0); TOTAL PROTEIN, SERUM 6.6 g/dL (6.4-8.2)
[2021-10-25 02:48] LABS: BILIRUBIN,DIRECT < 0.1 mg/dL (0.0-0.2)
--- NOTE | 2021-10-25 03:05 | NUR ---
Called [facility] for admission of patient. Waiting for Clayton LAO to call back.
--- NOTE | 2021-10-25 03:24 | NUR ---
Dr De Oliveira spoke with Clayton ALO who will call back if they can admit her to [facility] or give auth to stay here. Waiting for call back.
--- NOTE | 2021-10-25 05:23 | NUR ---
[facility] called with transfer info. Patient will be going to [facility] Room 5110A. Accepting MD is [facility] ambulance ETA is 0600.
--- NOTE | 2021-10-25 05:32 | NUR ---
Gave SBAR report to Emily, nurse from [facility].
--- NOTE | 2021-10-25 06:16 | NUR ---
Gave SBAR report to [facility] ambulance.
--- NOTE | 2021-10-25 06:30 | NUR ---
Transfered to [facility] by [facility] with no distress noted.
== END 2021-10-25 06:30 | disposition short-term general hospital (02) ==
LOC: ER 01:56
DX: R07.9 Chest pain, unspecified (principal); G89.4 Chronic pain syndrome; F13.20 Sedative, hypnotic or anxiolytic dependence, uncomplicated; Z79.891 Long term (current) use of opiate analgesic; I25.10 Atherosclerotic heart disease of native coronary artery without angina pectoris; Z95.5 Presence of coronary angioplasty implant and graft; Z20.822 Contact with and (suspected) exposure to COVID-19; Z95.810 Presence of automatic (implantable) cardiac defibrillator; Z98.82 Breast implant status; R94.31 Abnormal electrocardiogram [ECG] [EKG]; Z79.899 Other long term (current) drug therapy; Z87.891 Personal history of nicotine dependence; Z96.653 Presence of artificial knee joint, bilateral; Z96.611 Presence of right artificial shoulder joint; M79.7 Fibromyalgia; I47.2 Ventricular tachycardia; I25.2 Old myocardial infarction
CPT/HCPCS: 36415; 71045; 80048; 80076; 83880; 84484; 85025; 85379; 85730; 87426; 93005; 96374; 96375; 99285; J1170 ×2; J2405; 70030-TC; A4663

== ENCOUNTER 2022-01-01 02:39 | Inpatient (IN) | payer OTHER ==
[~2022-01-01] VITALS: Ht 160 cm; Wt 65.8 kg
[2022-01-01] MEDS ORDERED: PROCHLORPERAZINE EDISYLATE 10 MG/2 ML VIAL IV ONE (02:45)
[2022-01-01] MEDS ORDERED: PROCHLORPERAZINE EDISYLATE 10 MG/2 ML VIAL ONE ×2 (03:08→05:28)
[2022-01-01] MEDS ORDERED: FUROSEMIDE 40 MG/4 ML VIAL IV ONE (03:15)
[2022-01-01] MEDS ORDERED: HYDROMORPHONE 1 MG/1 ML DISP.SYRIN IM ONE (03:15)
[2022-01-01] MEDS ORDERED: FUROSEMIDE 40 MG/4 ML VIAL ONE (03:25)
[2022-01-01] MEDS ORDERED: HYDROMORPHONE 1 MG/1 ML DISP.SYRIN ONE (03:29)
[2022-01-01 03:53] LABS: HEMATOCRIT 32.7 % (31.2-41.9); MEAN CORPUSCULAR HEMOGLOBIN 24.1 uug (24.7-32.8); MEAN CORPUSCULAR VOLUME 79.3 fL (75.5-95.3); PLATELET COUNT (AUTO) 393 K/uL (179-408)
[2022-01-01 04:02] LABS: MAGNESIUM 2.2 mg/dL (1.8-2.4)
[2022-01-01 04:03] LABS: POTASSIUM 4.2 mmol/L (3.5-5.1)
[2022-01-01 04:15] LABS: BILIRUBIN,DIRECT 0.1 mg/dL (0.0-0.2); BILIRUBIN,TOTAL 0.3 mg/dL (0.2-1.0); TOTAL PROTEIN, SERUM 7.5 g/dL (6.4-8.2)
[2022-01-01] MEDS ORDERED: NITROGLYCERIN OINT 1 GM PACKET TP ONE ×2 (04:15→05:26)
[2022-01-01] MEDS ORDERED: ASPIRIN 81 MG TAB.CHEW PO ONE (04:30)
[2022-01-01] MEDS ORDERED: LORAZEPAM 2 MG/1 ML VIAL IV ONE ×3 (04:45→17:00)
[2022-01-01] MEDS ORDERED: ENOXAPARIN SODIUM 80 MG/0.8 ML DISP.SYRIN SQ ONE ×2 (05:15→06:14)
[2022-01-01] MEDS ORDERED: ASPIRIN 81 MG TAB.CHEW ONE (05:26)
[2022-01-01] MEDS ORDERED: LORAZEPAM 2 MG/1 ML VIAL ONE ×4 (05:27→17:03)
--- NOTE | 2022-01-01 06:14 | NUR ---
Summary of care. Patient arrive via rescue HOB up 100%non rebreather mask, patient anxious,verbalized " I can't breath,I feel so shaky,help me", restless. ED MD bedside direct care . Patient received IM medication, CXR, lab, #22L wrist. EKG Sinus Vaughn. Patient very verbal, HOB up. Belonging inventory done with patient.Lasix given 850cc clear yellow void. Ativan given patient able to rest. HOB up.
[2022-01-01] MEDS ORDERED: IV NORMAL SALINE 250 ML IV ONE (07:01)
[2022-01-01] MEDS ORDERED: IOHEXOL 350 100 ML INFUS..BTL ONE (07:01)
[2022-01-01] MEDS ORDERED: SWABABLE VALVE TRANSFER SET EA MC ONE (07:01)
--- NOTE | 2022-01-01 07:03 | NUR ---
0600 Patient swabed for COVID swab to lab. 100% Re breather off,changed to mask 10 liters O2.
[2022-01-01] MEDS ORDERED: REMEDY ESSENTIAL ZINC PASTE 113 GM TP PRN (11:15)
[2022-01-01] MEDS ORDERED: ONDANSETRON 4 MG/2 ML VIAL IV PRN (11:15)
[2022-01-01] MEDS ORDERED: ACETAMINOPHEN 325 MG TABLET PO PRN (11:15)
[2022-01-01] MEDS ORDERED: LORAZEPAM 2 MG/1 ML VIAL IV PRN ×2 (11:15→16:00)
[2022-01-01] MEDS ORDERED: ZIPRASIDONE MESYLATE 20 MG VIAL IM ONE ×2 (18:15→18:26)
--- NOTE | 2022-01-01 18:28 | NUR ---
REPORT WAS GIVEN TO PLAQUE MAKER GRAHAM. PT WAS TRANSFERED TO ROOM #315.
[2022-01-01 19:03] VITALS: BP 108/53
--- NOTE | 2022-01-01 20:30 | NUR ---
Received patient lying in bed, AAOX3-4, appears to be lethargic and unkempt. Admitted to room 315-telemetry, under care of Tamir Donald with admitting diagnosis of Pulmonary edema with secondary diagnosis of NSTEMI and LACTIC ACIDOSIS. Established nurse-patient rapport. Oriented patient to room, bed and call light button. Attached to tele monitor, showing sinus bradycardia with HR as low as 40s, ICEBOX WORKER notified, await further instructions. IV access patent and intact. on 3L NC saturating 94%. Patient shows no signs of distress. Unable to complete initial assessment and physical assessment as patient is too tired. Safety precautions initiated, bed alarm activated, bed in locked, call light within reach. Will continue to monitor.
[2022-01-02 00:18] VITALS: BP 103/37
[2022-01-02 04:18] VITALS: BP_SYST 107; BP_DIAS 51; BP_DIAS 65
--- NOTE | 2022-01-02 05:18 | NUR ---
Patient slept through the night. Noted having sinus bradycardia on tele monitor. Baseline BP runs in the low 100s. Feet elevated. Monitored closely. Patient shows no signs of distress. IV access' patent and intact. Compliant with medication regimen. All needs attended to and met. Safety precautions maintained. Will endorse to day shift.
[2022-01-02 06:49] LABS: HEMATOCRIT 27.7 % (31.2-41.9); MEAN CORPUSCULAR VOLUME 77.4 fL (75.5-95.3); PLATELET COUNT (AUTO) 313 K/uL (179-408)
[2022-01-02] MEDS ORDERED: PANTOPRAZOLE SODIUM 40 MG TABLET.DR PO SCH (07:00)
[2022-01-02 07:07] LABS: BILIRUBIN,TOTAL 0.4 mg/dL (0.2-1.0); CREATININE 0.6 mg/dL (0.6-1.3); MAGNESIUM 2.1 mg/dL (1.8-2.4); PHOSPHOROUS 3.7 mg/dL (2.5-4.9); POTASSIUM 3.9 mmol/L (3.5-5.1); TOTAL PROTEIN, SERUM 6.2 g/dL (6.4-8.2)
[2022-01-02] MEDS ORDERED: FUROSEMIDE 40 MG/4 ML VIAL IV SCH (09:00)
[2022-01-02] MEDS ORDERED: ASPIRIN EC 81 MG TABLET.DR PO SCH (09:00)
[2022-01-02] MEDS ORDERED: ENOXAPARIN SODIUM 40 MG/0.4 ML DISP.SYRIN SQ SCH ×2 (09:00→21:00)
[2022-01-02] MEDS ORDERED: ENOXAPARIN SODIUM 30 MG/0.3 ML DISP.SYRIN SUBCUT ONE (09:45)
[2022-01-02] MEDS ORDERED: CLOPIDOGREL 75 MG TABLET PO ONE (09:45)
--- NOTE | 2022-01-02 10:14 | NUR ---
PATIENT IS ASKING FOR XANAX STATED FEELS VERY ANXIOUS BUT SHE HAS NO ORDER FOR XANAX SO ATIVAN GIVEN ORDERED MADE COMFORTABLE WILL CONTINUE TO OBSERVE.
--- NOTE | 2022-01-02 11:45 | NUR ---
PLANNING TO HAVE PATIENT TRANSFERED TO [facility] FOR CARDIAC CATH AWAITING FOR FOOD OPERATIONS MANAGER OF TATE TO GIVE A GO AHEAD ORDER PATIENT AWARE.
[2022-01-02 12:00] VITALS: BP 119/48
--- NOTE | 2022-01-02 12:07 | NUR ---
NEW ORDER FOR CHEST XRAY RECEIVED FROM DR GREY JEROME RECEIVED AND NOTED.
[2022-01-02] MEDS ORDERED: ALPRAZOLAM 0.25 MG TABLET PO PRN (13:00)
--- NOTE | 2022-01-02 13:12 | NUR ---
RESTED JUST FOR A LITTLE BIT AFTER THE ATIVAN IS NOW COMPLAINING THAT SHE IS VERY ANXIOUS GREY LOPEZ HERE WITH NEW ORDERS TO GIVE HER XANAX BID PRN AND NOTED MEDICATED ORDERED WILL CONTINUE TO OBSERVE.
--- NOTE | 2022-01-02 13:36 | NUR ---
PATIENT IS ASKING FOR A XANAX AGAIN STATED JUST GIVE ME ONE MORE, REMINDED HER THAT SHE JUST GOT ONE .025 MG AT 1312 GREY HER PROVIDER NOTIFIED.
[2022-01-02] MEDS: LORAZEPAM 2 MG/1 ML VIAL IV PRN ×4 (14:05→20:58)
--- NOTE | 2022-01-02 14:05 | NUR ---
PATIENT REMAINS AGITATED AND ANXIOUS ASKING FOR XANAX CALLING EVERY 2 MINUTES ON THE CALL LIGHT DR GREY JEROME NOTIFIED WITH ORDER TO CHANGE THE FREQUENCY OF THE ATIVAN AND NOTED.
--- NOTE | 2022-01-02 15:30 | NUR ---
CALL RECEIVED FROM [place] PERSONAL INJURY LEGAL ASSISTANT OLGA AND SHE STATED THAT I SHOULD GIVE HER DETAILS ABOUT THE PATIENT STATED THAT SHE WAS UNABLE TO REACH THE [place] PERSONAL INJURY LEGAL ASSISTANT SO I WAS ABLE TO GIVEN HER THE INFORMATION SHE NEEDED AND SHE STATED THAT SHE IS TRYING TO PLACE PATIENT AT [facility] BUT WILL CALL AND LET US KNOW SOON THERE IS BED AVAILABLE AND NOTED.DR GREY JEROME IS AWARE OF PROPOSED TRANSFER BUT NO NEW ORDERS AT THIS TIME
[2022-01-02 16:00] VITALS: BP 117/42
--- NOTE | 2022-01-02 18:25 | NUR ---
PATIENT BHAVNACRISTIANOPatty MEDICATED WITH ATIVAN ORDERED SHE IS RESTLESS PULLING HER TELEMETRY OFF REMOVING HER BED LINEN REPOSITIONED PATIENT STATED THAT AT HOME SHE TAKES XANAX EVERY 2 HOURS.
[2022-01-02] MEDS ORDERED: SPIR25TA6 PO (19:44)
[2022-01-02] MEDS ORDERED: BISO5TAB20 PO (19:48)
--- NOTE | 2022-01-02 20:00 | NUR ---
Telephone call from [facility]/Kelly and informed this nurse that patient is accepted to [facility], room # 8723, telephone # for report is [phone].
[2022-01-02] MEDS ORDERED: GABA300C PO ×2 (20:12→20:13)
[2022-01-02] MEDS ORDERED: CLOP75TA33 PO (20:13)
[2022-01-02] MEDS ORDERED: FURO40TA5 PO (20:14)
[2022-01-02] MEDS ORDERED: AMIO200T5 PO (20:14)
[2022-01-02] MEDS ORDERED: ASPI-618 PO (20:15)
[2022-01-02] MEDS ORDERED: LOSA25TA27 PO (20:15)
--- NOTE | 2022-01-02 20:15 | NUR ---
Telephone call to [facility] CB De and gave report. Admitting Dr Mar.
[2022-01-02] MEDS ORDERED: EMPA10TA PO (20:16)
[2022-01-02] MEDS ORDERED: ATOR40TA PO (20:16)
[2022-01-02] MEDS ORDERED: BUSP15TA3 PO ×2 (20:17→20:18)
[2022-01-02] MEDS ORDERED: ESCI10TA PO (20:17)
[2022-01-02] MEDS ORDERED: ATORVASTATIN 40 MG TABLET PO SCH (21:00)
[2022-01-02] MEDS ORDERED: ENOXAPARIN SODIUM 80 MG/0.8 ML DISP.SYRIN SQ SCH (21:00)
--- NOTE | 2022-01-02 21:20 | NUR ---
Telephone call to patient daughter Aixa and Nael Diopucles and informed both that pt is transferred to [facility] and states understanding.
--- NOTE | 2022-01-02 21:20 | NUR ---
[facility] ambulance #[id number] arrived with 2 paramedics. Patient picked up via gurney, report given. Patient AAOx3-4. VS stable during discharge. All records provided.
[2022-01-03] MEDS ORDERED: ASPIRIN EC 81 MG TABLET.DR PO SCH (09:00)
[2022-01-03] MEDS ORDERED: CLOPIDOGREL 75 MG TABLET PO SCH (09:00)
[2022-01-03] MEDS ORDERED: FUROSEMIDE 40 MG TABLET PO SCH (09:00)
== END 2022-01-03 00:30 | disposition short-term general hospital (02) | DRG 280 ==
LOC: ER 02:41 → TELE3 15:58
PROVIDERS: ADMIT Hospitalist; ATTEND Hospitalist
DX: I50.23 Acute on chronic systolic (congestive) heart failure (principal); I21.4 Non-ST elevation (NSTEMI) myocardial infarction; J96.90 Respiratory failure, unspecified, unspecified whether with hypoxia or hypercapnia; E87.2 Acidosis; R73.9 Hyperglycemia, unspecified; F17.210 Nicotine dependence, cigarettes, uncomplicated; F32.A Depression, unspecified; Z20.822 Contact with and (suspected) exposure to COVID-19; Z96.653 Presence of artificial knee joint, bilateral; Z96.611 Presence of right artificial shoulder joint; Z95.5 Presence of coronary angioplasty implant and graft; M79.7 Fibromyalgia; I25.5 Ischemic cardiomyopathy; I25.2 Old myocardial infarction; Z95.0 Presence of cardiac pacemaker; Z98.82 Breast implant status; D72.829 Elevated white blood cell count, unspecified; I25.10 Atherosclerotic heart disease of native coronary artery without angina pectoris; F41.9 Anxiety disorder, unspecified; G89.4 Chronic pain syndrome; G31.84 Mild cognitive impairment of uncertain or unknown etiology; F03.90 Unspecified dementia, unspecified severity, without behavioral disturbance, psychotic disturbance, mood disturbance, and anxiety
CPT/HCPCS: 36415; 70030-TC; 71045; 71275; 83605; 83690; 83735; 84100; 85025; 85730; 93005; 93307; G0378; J0780; J1170; J1650; J1940; J2060; J3486; J7050; Q9967

== ENCOUNTER 2022-01-12 05:29 | Emergency (ER) | payer OTHER ==
[~2022-01-12] VITALS: Ht 160 cm; Wt 63.5 kg
[~2022-01-12 05:29] MED LIST changes: -ALPR0.255 PO; +AMIO200T5 PO; +ASPI-618 PO; +ATOR40TA PO; -BISA-79 PO; -BISA10SU61 RC; +BISO5TAB20 PO; -CARV6.252 PO; -CIPR-262 PO; +CLOP75TA33 PO; -DILT180C66 PO; -DOCU-141 PO; +EMPA10TA PO; +ESCI10TA PO; -ESCI20TA44 PO; +FURO40TA5 PO; -GABA-534 PO; +GABA300C PO; -IBUP-1953 PO; -LORA-259 PO; +LOSA25TA27 PO; -MINE1OIL PO; +SPIR25TA6 PO
--- NOTE | 2022-01-12 05:35 | NUR ---
Pt bib RA for anxiety d/o, pt asking for xannex bc of her shaking. Myself or the EDMD did not observe absolutly anything resembling shaking. Pt poss drug seeking and most definitly has psych issue. VSS, PE WNL, 80bpm, 124/60, 98%RA. Pt denies any pain, sob, dizziness, n/v, or discomfort. no s/sx of true distress present.
--- NOTE | 2022-01-12 05:50 | NUR ---
EKG performed by sat tutor without difficulty
[2022-01-12 06:21] LABS: HEMATOCRIT 27.7 % (31.2-41.9); MEAN CORPUSCULAR HEMOGLOBIN 24.3 uug (24.7-32.8); MEAN CORPUSCULAR VOLUME 76.8 fL (75.5-95.3); PLATELET COUNT (AUTO) 364 K/uL (179-408)
--- NOTE | 2022-01-12 06:25 | NUR ---
Pt given .5mg of Xannex PO per EDMD order.
[2022-01-12] MEDS ORDERED: ALPRAZOLAM 0.25 MG TABLET PO ONE (06:30)
[2022-01-12] MEDS ORDERED: ALPRAZOLAM 0.5 MG TABLET ONE (06:31)
--- NOTE | 2022-01-12 06:34 | NUR ---
XR tech at bedside with PXR machine to take ordered xr. xr completed without difficulty
--- NOTE | 2022-01-12 06:40 | NUR ---
Turned off lights, gave two warm blankets, reduced stimuli as much as possible and pt quickly fell asleep. currently pt is sleeping soundly with audible snorring. VSS. no s/sx of distress noted.
[2022-01-12 06:41] LABS: BILIRUBIN,DIRECT 0.1 mg/dL (0.0-0.2); BILIRUBIN,TOTAL 0.4 mg/dL (0.2-1.0); CREATININE 0.6 mg/dL (0.6-1.3); POTASSIUM 3.9 mmol/L (3.5-5.1); TOTAL PROTEIN, SERUM 6.9 g/dL (6.4-8.2)
--- NOTE | 2022-01-12 06:59 | NUR ---
PM RN stated he administered the xanax to the pt, in hand-off report. Apparently he did not zehra it off in e-JAN.
--- NOTE | 2022-01-12 10:15 | NUR ---
Pt sleeping, no distress noted.
--- NOTE | 2022-01-12 12:51 | NUR ---
gave pt lunch tray.
[2022-01-12] MEDS ORDERED: LORAZEPAM 2 MG/1 ML VIAL IV ONE (14:15)
[2022-01-12] MEDS ORDERED: ASPIRIN EC 325 MG TABLET.DR PO SCH (14:15)
[2022-01-12] MEDS ORDERED: ASPIRIN EC 325 MG TABLET.DR PO ONE (14:19)
--- NOTE | 2022-01-12 14:20 | NUR ---
pt c/o being anxious, MD informed. Administered meds.
[2022-01-12] MEDS ORDERED: LORAZEPAM 2 MG/1 ML VIAL ONE (14:21)
--- NOTE | 2022-01-12 14:55 | NUR ---
[facility] CALLED: PT IS GOING TO [facility], ROOM 5307A, REPORT NUMBER [phone], ACCEPTINIS Tulio [facility] ACLS TRANSFER AT [phone].
--- NOTE | 2022-01-12 16:20 | NUR ---
Called report to CB Gibson at [facility]. Gave report, chart, EKG and CXR CD to medics. Medics transported pt.
== END 2022-01-12 16:42 | disposition short-term general hospital (02) ==
LOC: ER 05:42
DX: R07.9 Chest pain, unspecified (principal); R06.02 Shortness of breath; F17.210 Nicotine dependence, cigarettes, uncomplicated; Z88.5 Allergy status to narcotic agent; Z79.899 Other long term (current) drug therapy; Z79.82 Long term (current) use of aspirin; Z79.01 Long term (current) use of anticoagulants; Z20.822 Contact with and (suspected) exposure to COVID-19
CPT/HCPCS: 36415; 71045; 80048; 80076; 83605; 83880; 84484 ×2; 85025; 87040 ×2; 87426; 93005; 96374; 99285; J2060; 70030-TC; A4663

== ENCOUNTER 2022-02-06 05:24 | Emergency (ER) | payer OTHER ==
[~2022-02-06] VITALS: Ht 160 cm; Wt 62.6 kg
[2022-02-06] MEDS ORDERED: LIDOCAINE 1%-EPI 1:100,000 20 ML VIAL ONE (06:05)
[2022-02-06] MEDS ORDERED: LIDOCAINE 2%-EPI 1:100,000 20 ML VIAL ONE (06:06)
--- NOTE | 2022-02-06 06:32 | NUR ---
pts wound cleaned throughly, MD throughly examined site for embedded foriegn objects and addtional injury. pt laceration was sutured by using 4 prolene stitches, pt tolerated procedure well. wound dressed with non-adherent bandage, gauze and coban. ACI provided in both verbal and written form to pt, who verbalised and was able to restate instructions. Care of wound for the next week discussed, with pt being informed that stitches will dissolve on thier own, however if they are still in place this upcoming sunday, February 11, pt is to seek medical professional for wound to be assessed and sutures removed. All instructions referred to provided to pts roommate/ caregiver, Yobani. Yobani also able to explain each step of upcoming care, including S/S that would require seeking immediate professional medical care such as, excessive bleeding, sudden change in mentation, swelling, warmth and pus like drainage, to that end yobani also verbalised understanding of ACI instructions. Pt sts she is unable to provide transportation for herself home, pt was brought to department via ambulance. RN attempted to contact, pts two listed emergency contacts, one of which, her daughter has a wrong number listed and pt is unable to recall daughters new phone number and pts roommate/ caregiver Yobani, who answered but has no reliable transportation. cement or concrete finishing supervisor contacted to provide transportation voucher for pt. Voucher obtained and [employer] contacted for procure ride for pt. Taxi service states there are no taxis available at this time. RN provided callback number for hospital and ceramics machine operator stated she would call when a taxi becomes available. pt updated as to plan of care. RN will provide updates as they become available
--- NOTE | 2022-02-06 06:58 | NUR ---
RN followed up with taxi service, who informed RN there are still no taxis available, dispatcher estimates 20-30 minutes before a taxi becomes available. pt updated as to plan of care and offered items for comfort, such as water, blanket, pillow, restroom all of which were declined. RN will contact Taxi service once stated time has elapsed.
[2022-02-06 07:03] VITALS: BP 139/74
--- NOTE | 2022-02-06 07:07 | NUR ---
report given to Brianna mohamud RN, all questions answered, pt alert & oriented, awaiting transportation
--- NOTE | 2022-02-06 09:09 | NUR ---
Patient discharged to home in stable condition. Written and verbal after care instructions given. Patient verbalizes understanding of instructions. Stressed follow up or return to ER for worsening s/s. Assissted pt to taxi via wheelchair.
== END 2022-02-06 09:10 | disposition home or self-care (01) ==
LOC: ER 05:27
DX: S01.81XA Laceration without foreign body of other part of head, initial encounter (principal); W01.190A Fall on same level from slipping, tripping and stumbling with subsequent striking against furniture, initial encounter; Y92.039 Unspecified place in apartment as the place of occurrence of the external cause; Z96.653 Presence of artificial knee joint, bilateral; Z96.611 Presence of right artificial shoulder joint; M79.7 Fibromyalgia; G89.29 Other chronic pain; F41.9 Anxiety disorder, unspecified; Z79.899 Other long term (current) drug therapy; F17.200 Nicotine dependence, unspecified, uncomplicated
CPT/HCPCS: 12011; 99282; J3490; A4663